=== PATIENT | male | born 1995 | race Caucasian/White ===

== ENCOUNTER 2022-01-26 16:31 | Outpatient (REF) | payer MEDICAID, SELFPAY ==
[2022-01-28 11:11] LABS: COVID-19 RT-PCR UVMMC Result Negative (Negative)
== END 2022-01-26 16:32 | disposition home or self-care (01) ==
LOC: LBN 16:31
PROVIDERS: Visit Provider Physician Assistant
DX: Z20.822 Contact with and (suspected) exposure to COVID-19 (principal)
CPT/HCPCS: U0003

== ENCOUNTER 2023-02-10 16:02 | Outpatient (REF) | payer MEDICAID, SELFPAY ==
[2023-02-10 19:35] LABS: Hemoglobin A1C 5.1 % (<5.7)
== END 2023-02-10 16:03 | disposition home or self-care (01) ==
LOC: NCHCN 16:02
PROVIDERS: Visit Provider Nurse Practitioner Family
DX: Z13.1 Encounter for screening for diabetes mellitus (principal)
CPT/HCPCS: 83036

== ENCOUNTER 2023-05-25 16:10 | Outpatient (REF) | payer MEDICAID, SELFPAY ==
[2023-05-25 18:27] LABS: Abs Immature Grans 0.02 10^3/uL (0.0-0.06); Absolute Basophil Count 0.06 10^3/uL (0.0-0.2); Absolute Eosinophil Count 0.33 10^3/uL (0.0-0.7); Absolute Lymphocyte Count 2.31 10^3/uL (1.2-3.4); Absolute Monocyte Count 0.51 10^3/uL (0.1-0.8); Absolute Neutrophil Count 2.82 10^3/uL (1.2-6.7); Eosinophils % 5.5; HCT 46.7 % (40.0-50.0); HGB 16.2 g/dL (13.5-17.5); Immature Grans % 0.3; Lymphocytes % 38.2; MCH 30.3 pg (27.0-33.0); MCHC 34.7 % (32.0-36.0); MCV 88 fL (80-95); MPV 8.6 fL (8.0-11.0); Monocytes % 8.4; Neutrophils % 46.6; Platelet Count 339 10^3/uL (130-400); RBC 5.34 10^6/uL (4.36-5.78); RDW 11.6 % (11.8-14.1); RDW-SD 36.9 fL; WBC 6.05 10^3/uL (4.4-10.8)
[2023-05-25 19:00] LABS: Vitamin D 25 Total 20.3 ng/mL (30-100)
[2023-05-25 19:05] LABS: ALT 63 U/L (16-63); AST 27 U/L (15-37); Albumin 3.8 g/dL (3.4-5.0); Alkaline Phosphatase 90 U/L (46-116); Anion Gap 8.4 mmol/L (3-11); BUN 11 mg/dL (7-18); Bilirubin, Total 0.4 mg/dL (0.2-1.0); CO2 25.6 mmol/L (21.0-32.0); Calcium 8.9 mg/dL (8.5-10.1); Chloride 104 mmol/L (98-107); Estimated GFR 107.12 (mL/min/1.73m2); Glucose 121 mg/dL (74-106); Potassium 4.1 mmol/L (3.5-5.1); Sodium 138 mmol/L (136-145); TSH (W/Ref FT4) 0.46 uIU/mL (0.36-3.74); Total Protein 7.7 g/dL (6.4-8.2); Vitamin B12 732 pg/mL (193-986)
== END 2023-05-25 16:11 | disposition home or self-care (01) ==
LOC: NCHCN 16:10
PROVIDERS: Visit Provider Nurse Practitioner Family
DX: R53.83 Other fatigue (principal); G47.20 Circadian rhythm sleep disorder, unspecified type; F41.8 Other specified anxiety disorders; R41.840 Attention and concentration deficit; E55.9 Vitamin D deficiency, unspecified
CPT/HCPCS: 80053; 82306; 82607; 84443; 85025

== ENCOUNTER 2024-07-09 01:43 | Outpatient (CLI) | payer MEDICAID, SELFPAY ==
--- NOTE | 2024-07-09 10:31 | DI.RAD_ITS ---
Exam(s) RF BARIUM SWALLOW UGI EXAM: RF BARIUM SWALLOW UGI CLINICAL HISTORY: reflux, epigastric discomfort,? hiatal hernia,R10.13 TECHNIQUE: 2D and realtime digital imaging was performed. CONTRAST MATERIAL: Thick and thin barium were administered. COMPARISON: No exams were available for comparison FINDINGS: The PA and lateral chest films show normal heart size and clear lung messer. The lateral it support engineer view of the neck is unremarkable. The it support engineer views of the abdomen show normal bowel gas pattern. Esophagus: The patient swallowed barium without difficulty. Noevidence for mucosal erosions. Nofol d thickening. No mass is visible. Nostricture. Motility: There is a normal primary stripping wave. No tertiary contractions were noted. There is no hiatal hernia. Nogastroesophageal reflux was observed during the exam. IMPRESSION: Normal barium swallow. RADIATION DOSE DELIVERED: zofia Villalobos=35.3 mGy
[2024-07-09] MEDS: Simethicone/Sod Bicarb/Cit Ac, 4 gram PACKET 1 PACKET PO (10:35)
[2024-07-09] MEDS: Barium Sulfate 60% W/V 355 ML BTL PO (10:35)
[2024-07-09] MEDS: Barium Sulfate 98% W/W 140 ML BTL PO (10:36)
== END 2024-07-09 02:03 ==
LOC: DI 01:43
PROVIDERS: Visit Provider Physician Assistant
DX: R10.13 Epigastric pain (principal)
CPT/HCPCS: 74221; 74246; J3490

== ENCOUNTER 2024-07-09 12:17 | Outpatient (CLI) | payer MEDICAID, SELFPAY ==
--- NOTE | 2024-07-09 12:15 | RT.EKG_ITS ---
APPROVED REPORT Exam: Resting ECG Reason for Exam: chest discomfort Patient Location: O HR:92 bpm ECG Measurements Heart Rate 92 AXIS TN 141 P 51 QRSd 84 QRS 59 QT 333 T 14 QTc 412 Conclusion Sinus rhythm...normal P axis, V-rate 50- 99 Probable left atrial enlargement...P >50mS, <-0.10mV V1 Otherwise normal ECG
--- NOTE | 2024-07-09 13:30 | RT.EKG_ITS ---
APPROVED REPORT Exam: Resting ECG Reason for Exam: chest discomfort Patient Location: O HR:79 bpm ECG Measurements Heart Rate 79 AXIS MO 144 P 34 QRSd 86 QRS 50 QT 345 T 16 QTc 396 Conclusion Sinus rhythm...normal P axis, V-rate 50- 99 Normal Electrocardiogram
== END 2024-07-09 12:18 | disposition home or self-care (01) ==
PROVIDERS: Visit Provider Nurse Practitioner Family
DX: R07.89 Other chest pain (principal)
CPT/HCPCS: 93010

== ENCOUNTER 2024-07-09 14:08 | Emergency (ER) | payer MEDICAID, SELFPAY ==
--- NOTE | 2024-07-09 14:00 | RT.EKG_ITS ---
APPROVED REPORT Exam: Resting ECG Reason for Exam: chest pain Patient Location: E HR:87 bpm ECG Measurements Heart Rate 87 AXIS DC 136 P 47 QRSd 88 QRS 46 QT 337 T 20 QTc 406 Conclusion Sinus rhythm 87 normal axis no stemi
[2024-07-09 14:12] VITALS: BP 126/83; PULSE 90; RESP 20; TEMP 36.8; O2SAT 94
[2024-07-09 15:32] LABS: Abs Immature Grans 0.02 10^3/uL (0.0-0.06); Absolute Basophil Count 0.06 10^3/uL (0.0-0.2); Absolute Eosinophil Count 0.42 10^3/uL (0.0-0.7); Absolute Lymphocyte Count 2.92 10^3/uL (1.2-3.4); Absolute Monocyte Count 0.74 10^3/uL (0.1-0.8); Absolute Neutrophil Count 3.89 10^3/uL (1.2-6.7); Basophils % 0.7 %; Eosinophils % 5.2 %; HCT 47.5 % (40.0-50.0); HGB 16.1 g/dL (13.5-17.5); Immature Grans % 0.2 %; Lymphocytes % 36.3 %; MCH 29.7 pg (27.0-33.0); MCHC 33.9 % (32.0-36.0); MCV 88 fL (80-95); MPV 9.5 fL (8.0-11.0); Monocytes % 9.2 %; Neutrophils % 48.4 %; Platelet Count 149 10^3/uL (130-400); RBC 5.43 10^6/uL (4.36-5.78); RDW 11.5 % (11.8-14.1); RDW-SD 36.9 fL; WBC 8.05 10^3/uL (4.4-10.8)
--- NOTE | 2024-07-09 16:10 | ED.GENADUL_ITS ---
Discharge Plan Disposition Patient Disposition: Home Condition: Good Discharge Details Clinical Impression: Chest pain Primary Care Provider: None,None ED Provider: Linda Dumont Home Meds and New Rx's Prescriptions: No Action albuterol sulfate 90 mcg/actuation HFA aerosol inhaler 2 puff inhalation Q6H PRN (Reason: shortness of breath or wheezing) Qty: 6.7 0RF (DME) Aerochamber MV Spacer See Rx Instructions .Route Qty: 1 0RF Rx Instructions: As directed omeprazole 20 mg capsule,delayed release(DR/EC) 20 mg PO DAILY Qty: 30 0RF Discharge Instructions Instructions: Chest Pain, Adult ED Additional Instructions: Tylenol and ibuprofen over the counter for pain; follow the directions on the bottle. Call your primary care doctor tomorrow to schedule an appointment to be seen within 48 hours to followup on your visit here. Return to the emergency department for new or worsening symptoms including new/different/worse chest pain, feeling like you are going to pass out, shortness of breath, or if you have any other concerns. Stand Alone Forms: Work Release HPI General Mode of arrival: ambulatory . Date/Time Provider Initiated Documentation: 07/09/24 14:10 . Limitations to Documentation: no limitations . Information obtained by: patient . HPI Narrative: 28yo M with hx asthma, GERD, presenting with intermittent chest pain for 5 months. Does not currently have a PCP. Seen at on 06/29 for this, had outpatient barium swallow done which was reportedly negative. Presented again to today, advised to go to the ED for further evaluation. He reports 5 months of occasional epigastric/substernal 'numbness' and 'heavyness' that seems to occur more frequently with activity. Diminished appetite; feels full with roughly half his usual volume of food. Over the past 1-2 weeks has had daily sharp left sided chest pain radiating to his scapula, also with exertion and with position changes i.e. bending over. Not pleuritic. Does feel short of breath when this occurs. No alleviating factors. Seems to last for about 30 minutes when it occurs before resolving. No fevers, chills, rash, nausea, vomiting, lightheadedness, numbness, tingling, weakness, back pain, or other concerns. Related Data Home Medications ?Medication ?Instructions ?Recorded ?Confirmed albuterol sulfate 90 mcg/actuation 2 puff inhalation Q6H PRN 07/11/23 07/09/24 aerosol inhaler shortness of breath or wheezing #6.7 grams inhalational spacing device #1 ea 07/11/23 07/09/24 (Aerochamber MV spacer) omeprazole 20 mg capsule,delayed 20 mg PO DAILY #30 caps 06/29/24 07/09/24 release Previous Rx's ?Medication ?Instructions ?Recorded albuterol sulfate 90 mcg/actuation 2 puff inhalation Q6H PRN 07/11/23 aerosol inhaler shortness of breath or wheezing #6.7 grams inhalational spacing device #1 ea 07/11/23 (Aerochamber MV spacer) omeprazole 20 mg capsule,delayed 20 mg PO DAILY #30 caps 06/29/24 release Allergies Allergy/AdvReac Type Severity Reaction Status Date / Time No Known Allergies Allergy Verified 07/09/24 12:15 General Stated Complaint: Chest Pain SANJANA: 3 Review of Systems Narrative: see HPI Exam Narrative Exam Narrative: General: Alert, well appearing, well nourished, in no acute distress. Head: Normocephalic, atraumatic Neck: Trachea midline, ?Neck supple. ENT: ?MMM.? No oropharygeal lesions or exudate. Chest: Reproducible tenderness to left parasternal region. Cardiac: ?RRR, no murmurs appreciated Resp: No respiratory distress. CTAB. Abd: ?Soft, non-distended, nontender. No epigastric tenderness. : ?No suprapubic tenderness. Extremities: ?No deformities.? No peripheral edema. Neurologic: GCS 15. ? Moves all extremities freely against gravity Course Vital Signs Vital signs: Vital Signs Temperature 36.8 C 07/09/24 14:12 Pulse 90 07/09/24 14:12 Respiratory Rate 20 07/09/24 14:12 Blood Pressure 126/83 07/09/24 14:12 Pulse Oximetry 94 07/09/24 14:12 Temperature 36.8 C 07/09/24 14:12 Pulse 90 07/09/24 14:12 Respiratory Rate 20 07/09/24 14:12 Respiratory Effort Normal 07/09/24 14:20 Blood Pressure 126/83 07/09/24 14:12 Pulse Oximetry 94 07/09/24 14:12 Pain Level 3 07/09/24 14:12 Lab/Test Results Lab/Test Results: Laboratory Tests Range/Units 07/09/24 15:25 WBC (4.4-10.8) 10^3/uL 8.05 RBC (4.36-5.78) 10^6/uL 5.43 Hgb (13.5-17.5) g/dL 16.1 Hct (40.0-50.0) % 47.5 MCV (80-95) fL 88 MCH (27.0-33.0) pg 29.7 MCHC (32.0-36.0) % 33.9 RDW (11.8-14.1) % 11.5 L Plt Count (130-400) 10^3/uL 149 MPV (8.0-11.0) fL 9.5 Immature Gran % % 0.2 Neutrophils % % 48.4 Lymphocytes % % 36.3 Monocytes % % 9.2 Eosinophils % % 5.2 Basophils % % 0.7 Nucleated RBC % (0.0-0.3) % 0.0 Absolute Neutrophils (1.2-6.7) 10^3/uL 3.89 Absolute Lymphocytes (1.2-3.4) 10^3/uL 2.92 Absolute Monocytes (0.1-0.8) 10^3/uL 0.74 Absolute Eosinophils (0.0-0.7) 10^3/uL 0.42 Absolute Basophils (0.0-0.2) 10^3/uL 0.06 D-Dimer Cancelled Medical Decision Making 28yo M with hx asthma, GERD, presenting with intermittent chest pain for 5 months. Does not currently have a PCP.; seen at on 06/29 for this, had outpatient barium swallow done which was reportedly negative, presented again to today for persistent symptoms. Over the past 1-2 weeks has had daily sharp left sided chest pain radiating to his scapula, also with exertion and with position changes i.e. bending over. Vital signs reassuring on arrival, benign physical exam; does have some reproducible left parasternal tenderness to palpation. -EKG on arrival NSR, appropriate intervals, no ST segment or T wave abnormalities to suggest occlusive RI. -Labs reviewed as below, CBC reassuring with no leukocytosis or anemia, CMP with no actionable abnormalities, lipase normal (unlikely pancreatitis), troponin negative, dimer negative. Would not further pursue PE with chest CT or trend troponins for ACS. -CXR independently reviewed; no focal pneumonia or pneumothorax on my view, agree with radiology read below. HEART score 1 for risk factors, low risk. No family history of sudden unexpected . Would not admit for further workup at this time. Given tylenol, toradol and GI cocktail for symptoms; on reassessment he reports minimal change in his symptoms. No active chest pain but does continue to feel 'twinges' with position changes. May be MSK in etiology with reassuring workup and chest wall tenderness; advised rest and symptomatic treatment at home as well as close PCP followup for further management and workup on an outpatient basis. Discharged home; discharge instructions and return precautions were reviewed with patient who verbalized understanding. All questions were answered and he is in full agreement with the plan. Imaging Data Radiologic Study: Imaging: X-Ray Radiologist's impression: IMPRESSION: No acute pulmonary findings. Lab Data Lab results reviewed: Yes I reviewed the patient's lab results. Labs: Laboratory Tests Range/Units 07/09/24 07/09/24 15:25 16:05 WBC (4.4-10.8) 10^3/uL 8.05 RBC (4.36-5.78) 10^6/uL 5.43 Hgb (13.5-17.5) g/dL 16.1 Hct (40.0-50.0) % 47.5 MCV (80-95) fL 88 MCH (27.0-33.0) pg 29.7 MCHC (32.0-36.0) % 33.9 RDW (11.8-14.1) % 11.5 L Plt Count (130-400) 10^3/uL 149 MPV (8.0-11.0) fL 9.5 Immature Gran % % 0.2 Neutrophils % % 48.4 Lymphocytes % % 36.3 Monocytes % % 9.2 Eosinophils % % 5.2 Basophils % % 0.7 Nucleated RBC % (0.0-0.3) % 0.0 Absolute Neutrophils (1.2-6.7) 10^3/uL 3.89 Absolute Lymphocytes (1.2-3.4) 10^3/uL 2.92 Absolute Monocytes (0.1-0.8) 10^3/uL 0.74 Absolute Eosinophils (0.0-0.7) 10^3/uL 0.42 Absolute Basophils (0.0-0.2) 10^3/uL 0.06 D-Dimer Cancelled 282 Sodium (136-145) mmol/L 142 Potassium (3.5-5.1) mmol/L 4.7 Chloride (98-107) mmol/L 105 Carbon Dioxide (21.0-32.0) mmol/L 28.8 Anion Gap (3-11) mmol/L 8.2 BUN (7-18) mg/dL 13 Creatinine (0.70-1.30) mg/dL 0.9 Est GFR (CKD-EPI 2020) (mL/min/1.73m2) 120.80 Glucose (74-106) mg/dL 83 Calcium (8.5-10.1) mg/dL 9.0 Total Bilirubin (0.2-1.0) mg/dL 0.33 AST (15-37) U/L 38 H ALT (16-63) U/L 66 H Alkaline Phosphatase (46-116) U/L 82 Troponin I (<or=76) ng/L < 4 Total Protein (6.4-8.2) g/dL 7.8 Albumin (3.4-5.0) g/dL 3.4 Lipase (16-77) U/L 44 Quality:SDOH Health Related Social Needs: No Data to Display PFSH All Active Problems (Updated 07/09/24 @ 18:58 by Linda Dumont MD) Chest pain (Acute) Medical History Anxiety and depression Blood glucose elevated History of torn meniscus of left knee Itching of ear Social History Smoking/Tobacco Use Status: Former Tobacco Use Quit Date: 02/26/22 Smoking risk assessment performed?: Yes Alcohol Intake: current Alcohol Intake frequency: holidays/special occasions only Substance use type: does not use Housing: house Do you feel safe at home: Yes Do you feel safe in your relationship?: Yes
[2024-07-09 16:15] LABS: ALT 66 U/L (16-63); Albumin 3.4 g/dL (3.4-5.0); Alkaline Phosphatase 82 U/L (46-116); Anion Gap 8.2 mmol/L (3-11); BUN 13 mg/dL (7-18); Bilirubin, Total 0.33 mg/dL (0.2-1.0); CO2 28.8 mmol/L (21.0-32.0); CREATININE 0.9 mg/dL (0.70-1.30); Chloride 105 mmol/L (98-107); Glucose 83 mg/dL (74-106); Potassium 4.7 mmol/L (3.5-5.1); Sodium 142 mmol/L (136-145); Total Protein 7.8 g/dL (6.4-8.2)
[2024-07-09 16:22] LABS: Troponin I < 4 ng/L (<or=76)
[2024-07-09 16:32] LABS: Lipase 44 U/L (16-77)
[2024-07-09 16:45] LABS: AST 38 U/L (15-37)
[2024-07-09 16:48] LABS: D-Dimer 282 ng/mlFEU (<500)
[2024-07-09] MEDS: Ketorolac 15 MG/ML VIAL IVP (17:51)
[2024-07-09] MEDS: Acetaminophen 500 MG TAB 1000 MG PO (17:51)
--- NOTE | 2024-07-09 18:08 | DI.RAD_ITS ---
Exam(s) XR CHEST 2V PA LATERAL EXAM: XR CHEST 2V PA LATERAL CLINICAL HISTORY: chest pain TECHNIQUE: 2D digital imaging was performed of the chest. Two images were obtained. PA and lateral views were obtained. COMPARISON: CR,RF RF BARIUM SWALLOW UGI from 07/09/2024 FINDINGS: MEDIASTINUM: Normal. HEART: Normal. PULMONARY VASCULATURE: Normal. LUNGS: Clear. PLEURAL SPACE: No pleural effusion or pneumothorax. BONE:Within normal limits for the patient's age. OTHER FINDINGS:There is contrast seen in the colon consistent with the patient's barium examination p erformed the same day. IMPRESSION: No acute pulmonary findings. DATA REPOSITORY: RADIATION DOSE DELIVERED:
[2024-07-09 19:13] VITALS: RESP 20
[2024-07-09 19:15] VITALS: BP 140/98; PULSE 82; RESP 20; TEMP 36.9; O2SAT 99
== END 2024-07-09 19:16 | disposition home or self-care (01) ==
PROVIDERS: Emergency Provider Student in an Organized Health Care Education/Training Program
DX: R07.9 Chest pain, unspecified (principal); K21.9 Gastro-esophageal reflux disease without esophagitis; Z87.09 Personal history of other diseases of the respiratory system
CPT/HCPCS: 80053; 83690; 93005; 96374; 99284; 71046; 84484; 85025; 85379; 93010; J1885

== ENCOUNTER 2024-07-10 09:44 | Emergency (ER) | payer MEDICAID, SELFPAY ==
[2024-07-10] VITALS (17 sets, daily range): BP systolic 119–124; BP diastolic 68–82; PULSE 73–99; RESP 14–27; TEMP 36.7; O2SAT 98
--- NOTE | 2024-07-10 09:45 | RT.EKG_ITS ---
APPROVED REPORT Exam: Resting ECG Reason for Exam: chest pain Patient Location: E HR:83 bpm ECG Measurements Heart Rate 83 AXIS CO 143 P 46 QRSd 90 QRS 49 QT 343 T 24 QTc 403 Conclusion Sinus rhythm...normal P axis, V-rate 60- 99
--- NOTE | 2024-07-10 10:00 | DI.CT_ITS ---
Exam(s) CT CHEST PE ABD PELVIS W EXAM: CT CHEST PE ABD PELVIS W CLINICAL HISTORY: chest pain, dyspnea, epigastric pain, RUQ pain. TECHNIQUE: Imaging Protocol: Axial computed tomography images with coronal and sagittal reformatted images were created and reviewed. Computer aided detection (CAD) was utilized. CONTRAST MATERIAL: Intravenous: Omnipaque 350 Contrast volume:100 ml Oral: /residual dense barium within the colon related to previous day's upper GI series. COMPARISON: CR,RF RF BARIUM SWALLOW UGI from 07/09/2024 CR XR CHEST 2V PA LATERAL from 07/09/2024 FINDINGS: CHEST: Tracheobronchial tree: Patent. Pulmonary parenchyma: Evaluation somewhat limited due to expiratory changes. No consolidation or dom inant measurable mass. Pleura: No effusion or pneumothorax. Mediastinum: Within normal limits. Aorta: Thoracic portion non-dilated. Pulmonary arteries: No visible emboli. Heart: No pericardial effusion. Bones: Unremarkable for age. No lytic or blastic lesions.No compression fractures. Soft tissues: Unremarkable. ABDOMEN and PELVIS: Exam is limited by dense barium within the colon which creates streak artifact. Liver: Moderate hepatic steatosis.. No measurable mass. Gallbladder and biliary tract: No evidence of stones or wall thickening. No biliary dilatation. Pancreas: Normal density, no abnormal calcifications or inflammatory process. Spleen: Normal. Kidneys: Normal size, contour and axis. No radiodense stones. No obstructive uropathy. No suspicious masses seen. Adrenal glands: No masses seen. Aorta: Abdominal portion non-dilated. Lymph nodes: Within normal limits. Soft tissues: Unremarkable. Bladder: Unremarkable. Bowel: Residual dense barium within the colon. No obstruction or bowel wall thickening. The append ix is normal. Peritoneal cavity: No ascites. No focal collection. No mesenteric inflammatory response. No free ai r. Bones: Unremarkable for age. Reproductive organs: Within normal limits. IMPRESSION: No acute abnormality in the chest, abdomen or pelvis. RADIATION DOSE DELIVERED: 873.94mGy.cm Total DLP DATA REPOSITORY: All CT scans at this facility are submitted to the National Radiology Data Registry (NRDR) Dose Index Registry (DIR) with the [employer] (ACR). RADIATION OPTIMIZATION: All CT scans at this facility use at least one of these dose optimization te chniques: automated exposure control; mA and/or kV adjustment per patient size (includes targeted exa ms where dose is matched to clinical indication); or iterative reconstruction.
[2024-07-10] MEDS: Omnipaque 350 MG/ML 100 ML BTL IJ (11:00)
[2024-07-10] MEDS: Normal Saline - Diluent 50 ML VIAL IJ (11:02)
--- NOTE | 2024-07-10 15:08 | W.ED.GENAD ---
Discharge Plan Disposition Patient Disposition: Home Condition: Stable Discharge Details Clinical Impression: Chest pain, Epigastric pain Primary Care Provider: None,None ED Provider: Leyda Talbot Home Meds and New Rx's Prescriptions: New hydroxyzine HCl 25 mg tablet 25 mg PO BID PRNQty: 20 0RF sucralfate [Carafate] 1 gram tablet 1 g PO BID Qty: 60 0RF Continued albuterol sulfate 90 mcg/actuation HFA aerosol inhaler 2 puff inhalation Q6H PRN (Reason: shortness of breath or wheezing) Qty: 6.7 0RF (DME) Aerochamber MV Spacer See Rx Instructions .Route Qty: 1 0RF Rx Instructions: As directed omeprazole 20 mg capsule,delayed release(DR/EC) 20 mg PO DAILY Qty: 30 0RF Discharge Instructions Instructions: Chest Pain (DC) Additional Instructions: You may take the hydroxyzine as needed for any anxiety you may have, this can make you drowsy so tried at home before taking this medication at work. You may add Carafate onto the omeprazole and see if it helps her symptoms Please follow-up with your primary care physician, a Holter monitor or stress test may be the next step Referring you to surgery for endoscopy Please return should you have new or worsening complaints Your CT scan of your chest abdomen and pelvis is reassuring today Referrals: ANNABELLE MILAN NP [ NON-[facility] STAFF PHYSICIAN] - 2 days Katarina Becker DO [OSTEOPATHIC DOCTOR] - Discharge Data Discharge Date/Time-TO BE ENTERED AT DEPARTURE: 07/10/24 12:31 HPI General Date/Time Provider Initiated Documentation: 07/10/24 09:45. HPI Narrative: This 28-year-old male presents with report of epigastric and chest pain which has been recurring for the past 5 months. States has had numerous evaluations of the barium study yesterday and H. pylori both of which were negative. Presents today secondary to recurrence of symptoms. Does have multiple stressors in his home but unsure if this is the cause of his symptoms. States his symptoms are worse with any sort of exertion denies significant change with eating. He was started on omeprazole approximately 2 to 3 weeks ago which has not improved his symptoms. Has not had an endoscopy. No tobacco for 2 years, no current alcohol and no illicit drug use Related Data Home Medications ?Medication ?Instructions ?Recorded ?Confirmed albuterol sulfate 90 mcg/actuation 2 puff inhalation Q6H PRN 07/11/23 07/10/24 aerosol inhaler shortness of breath or wheezing #6.7 grams inhalational spacing device #1 ea 07/11/23 07/10/24 (Aerochamber MV spacer) omeprazole 20 mg capsule,delayed 20 mg PO DAILY #30 caps 06/29/24 07/10/24 release hydroxyzine HCl 25 mg tablet 25 mg PO BID PRN #20 tabs 07/10/24 sucralfate 1 gram tablet (Carafate) 1 g PO BID #60 tabs 07/10/24 Previous Rx's ?Medication ?Instructions ?Recorded albuterol sulfate 90 mcg/actuation 2 puff inhalation Q6H PRN 07/11/23 aerosol inhaler shortness of breath or wheezing #6.7 grams inhalational spacing device #1 ea 07/11/23 (Aerochamber MV spacer) omeprazole 20 mg capsule,delayed 20 mg PO DAILY #30 caps 06/29/24 release hydroxyzine HCl 25 mg tablet 25 mg PO BID PRN #20 tabs 07/10/24 sucralfate 1 gram tablet (Carafate) 1 g PO BID #60 tabs 07/10/24 Allergies Allergy/AdvReac Type Severity Reaction Status Date / Time No Known Allergies Allergy Verified 07/09/24 12:15 General Stated Complaint: Chest Pain SANJANA: 3 Exam Narrative Exam Narrative: Alert and oriented 28-year-old male in no acute distress with no significant abdominal tenderness mild epigastric tenderness, reproducible chest wall tenderness lungs clear to auscultation, distal pulses intact, no abdominal bruit or pulsatile mass Course Vital Signs Vital signs: Vital Signs Temperature 36.7 C 07/10/24 09:54 Pulse 90 07/10/24 09:54 Respiratory Rate 16 07/10/24 09:54 Blood Pressure 120/82 07/10/24 09:54 Pulse Oximetry 98 07/10/24 09:54 Temperature 36.7 C 07/10/24 09:54 Temperature Source Oral 07/10/24 09:54 Pulse 78 07/10/24 12:30 Pulse 79 07/10/24 12:20 Respiratory Rate 23 07/10/24 12:30 Respiratory Effort Normal, Non-Labored 07/10/24 09:58 Blood Pressure 119/68 07/10/24 12:30 Blood Pressure Mean 89 07/10/24 11:21 Blood Pressure Position Sitting 07/10/24 09:54 Pulse Oximetry 98 07/10/24 12:30 Oxygen Delivery Method Room Air 07/10/24 09:54 Oxygen Flow Rate 0 07/10/24 09:54 Pain Level 5 07/10/24 09:54 Medical Decision Making 28-year-old male in no acute distress, repeat visits to the emergency room and urgent care, no CTs of been ordered in the past, will order CT chest abdomen pelvis for additional evaluation. Patient is otherwise in no acute distress, resting comfortably, will add Carafate to his regimen if CTs are negative. CT does not show evidence of significant acute abnormality. Will refer to surgery for endoscopy. Patient's is also requested something for anxiety to try at home as they have been under increased dressers. I did write for hydroxyzine which he may try as needed. Patient had labs performed yesterday I see no clear indication for repeat assessment, he did have mild elevation in LFTs which is not new. He is discharged home in stable condition with stable vitals return precautions reviewed and patient expressed understanding Quality:SDOH Health Related Social Needs: No Data to Display PFSH All Active Problems (Updated 07/10/24 @ 12:09 by NAMITA Yuan) Epigastric pain (Acute) Chest pain (Acute) Chest pain (Acute) Medical History Anxiety and depression Blood glucose elevated History of torn meniscus of left knee Itching of ear Social History Smoking/Tobacco Use Status: Former Tobacco Use Quit Date: 02/26/22 Smoking risk assessment performed?: Yes Alcohol Intake: current Alcohol Intake frequency: holidays/special occasions only Substance use type: does not use Housing: house Do you feel safe at home: Yes Do you feel safe in your relationship?: Yes
== END 2024-07-10 12:31 | disposition home or self-care (01) ==
PROVIDERS: Emergency Provider Physician Assistant
DX: R07.9 Chest pain, unspecified (principal); R10.13 Epigastric pain; Z87.891 Personal history of nicotine dependence
CPT/HCPCS: 71275; 74177; 93005; 99285; 93010; 99284; J3490

== ENCOUNTER 2024-09-06 15:07 | Outpatient (REF) | payer MEDICAID, SELFPAY ==
[2024-09-06 16:47] LABS: ALT 55 U/L (16-63); AST 25 U/L (15-37); Albumin 4.1 g/dL (3.4-5.0); Alkaline Phosphatase 90 U/L (46-116); Anion Gap 7.4 mmol/L (3-11); BUN 12 mg/dL (7-18); Bilirubin, Total 0.37 mg/dL (0.2-1.0); CO2 29.6 mmol/L (21.0-32.0); Calcium 9.1 mg/dL (8.5-10.1); Chloride 104 mmol/L (98-107); Estimated GFR 105.79 (mL/min/1.73m2); Glucose 98 mg/dL (74-106); Potassium 4.1 mmol/L (3.5-5.1); Sodium 141 mmol/L (136-145); Total Protein 8.2 g/dL (6.4-8.2)
[2024-09-06 16:49] LABS: Hemoglobin A1C 5.5 % (<5.7)
== END 2024-09-06 15:08 | disposition home or self-care (01) ==
LOC: NCHCN 15:07
PROVIDERS: Visit Provider Nurse Practitioner Family
DX: F41.9 Anxiety disorder, unspecified (principal); R42 Dizziness and giddiness; Z68.42 Body mass index [BMI] 45.0-49.9, adult
CPT/HCPCS: 80053; 83036; 84443